=== PATIENT | male | born 1995 | race Caucasian/White ===

== ENCOUNTER 2016-03-25 12:11 | Emergency (ER) | payer BC, OTHER ==
[~2016-03-25] VITALS: Ht 177.8 cm; Wt 97.5 kg
[2016-03-25 12:29] VITALS: BP 150/90
[2016-03-25] MEDS ORDERED: KETOROLAC TROMETH 60MG/2ML VIAL IM ONE (13:30)
== END 2016-03-25 15:15 | disposition home or self-care (01) ==
LOC: ER 12:13
DX: S39.012A Strain of muscle, fascia and tendon of lower back, initial encounter (principal); M48.06 Spinal stenosis, lumbar region; V49.49XA Driver injured in collision with other motor vehicles in traffic accident, initial encounter; Y93.89 Activity, other specified; Y99.8 Other external cause status; Y92.488 Other paved roadways as the place of occurrence of the external cause
CPT/HCPCS: 72131; 96372; 99284; J1885